=== PATIENT | male | born 1940 | race American Indian/Alaskan Native ===

== ENCOUNTER 2019-07-25 08:51 | Day surgery (SDC) | payer MEDICARE ==
[2019-07-25] MEDS ORDERED: SODIUM CHLORIDE 0.9% 1000 ML 1,000 ML IV SCH (09:00)
--- NOTE | 2019-07-25 10:11 | Anesthesia Consultation ---
Anesthesia Consult and Med Hx Date of service: 07/25/19 - Airway Anesthetic Teeth Evaluation: Poor ROM Head & Neck: Adequate Mental/Hyoid Distance: Adequate Mallampati Class: Class II Intubation Access Assessment: Probably Good - Pulmonary Exam CTA: Yes - Pre-Operative Health Status ASA Pre-Surgery Classification: ASA3 Proposed Anesthetic Plan: MAC - Pulmonary Hx Sleep Apnea: Yes (Does not use his CPAP machine) - Cardiovascular System Hx Hypertension: Yes Hx Coronary Artery Disease: Yes (EF 42%) Hx Cardia Arrhythmia: Yes (His of Afibb, Aflutter) Hx Heart Murmur: Yes - Gastrointestinal Hx Ulcer: Yes (STOMACH/INTESTINAL ULCERS) - Hematic Hx Anemia: Yes - Other Systems Hx Cancer: Yes (Prostate CA)
--- NOTE | 2019-07-25 10:12 | Anesthesia Day of Surgery ---
Anesthesia Day of Surgery - Day of Surgery Patient Examined: Yes Patient H&P Reviewed: Yes Patient is NPO: Yes Beta Blockers: Yes Cardiac Clearance: Yes
[2019-07-25] MEDS ORDERED: PROPOFOL 200 MG/20 ML VIAL IV ONE (10:14)
--- NOTE | 2019-07-25 10:47 | Short Stay Summary ---
Short Stay Documentation Date of service: 07/25/19 - History H&P: obtained from office - Allergies and Medications Current Medications: Allergies Penicillins Allergy (Verified 07/25/19 08:31) Shortness of Breath Home Medications Medication Instructions Recorded Confirmed Last Taken Type Bicalutamide 50 mg PO DAILY 07/25/19 07/25/19 Unknown History Celecoxib 200 mg PO PRN PRN 07/25/19 07/25/19 Unknown History Ferrous Sulfate 325 mg PO BID 07/25/19 07/25/19 Unknown History Furosemide 40 mg PO DAILY 07/25/19 07/25/19 07/24/19 History Ibuprofen 800 mg PO DAILY 07/25/19 07/25/19 Unknown History Lisinopril 5 mg PO DAILY 07/25/19 07/25/19 07/21/19 History Metoprolol 25 mg PO DAILY 07/25/19 07/25/19 07/21/19 History Multiple Vitamins 1 tab PO DAILY 07/25/19 07/25/19 07/21/19 History Potassium Chloride 10 meq PO DAILY 07/25/19 07/25/19 Unknown History Warfarin 7.5 mg PO DAILY 07/25/19 07/25/19 07/21/19 History Active Medications Sodium Chloride (Nacl 0.9% 1000 Ml) 1,000 mls @ 50 mls/hr IV DIRECT JESSICA Last Admin: 07/25/19 09:59 Dose: 50 mls/hr Documented by: - Brief post op/procedure progress note Date of procedure: 07/25/19 Procedure: see dictation Estimated blood loss: none Pathology: list (1. Random right colon biopsies for microscopic colitis 2. ascending colon polyp 3. sigmoid colon polyp) Specimen disposition: to lab Condition: stable - Disposition Condition at discharge: Good Disposition: DC-01 TO HOME OR SELFCARE - Discharge Diagnoses (1) Diarrhea Status: Acute Short Stay Discharge Plan Activity: other (no driving for 24 hours) Weight Bearing Status: Full Weight Bearing Diet: regular Follow up with: PRIMARY CARE, [Primary Care Provider] - 7 Days
--- NOTE | 2019-07-25 10:51 | Operative Report ---
Operative Report Operative Report: Date of procedure: 07/25/2019 Preprocedure diagnosis: Unexplained diarrhea. Change in bowel habits. Post procedure diagnosis: Normal-appearing terminal ileum. The 7 millimeter pedunculated, inflamed appearing descending colon polyp. 6 mm sessile sigmoid polyp. Procedure: Colonoscopy to the cecum and terminal ileum with random biopsies of the right colon and snare polypectomy with cautery 2. Endoscopist: Dr. Vargas Anesthesia: Monitored anesthesia care per anesthesia department Estimated blood loss: 0 Medications: Monitored anesthesia care. See separate report by anesthesia for details. After careful discussion of the nature and purpose of the procedure as well as details of the technique risks benefits and alternatives the patient gave consent. Please see recent history and physical from the office. The patient was placed in the left lateral decubitus position and medicated per anesthesia. A rectal exam was performed sphincter tone was normal there were no masses palpable. The Klyppern 570 scope was passed transanally and advanced under continuous direct vision without difficulty to the cecum. The colon was well prepared. The cecum was normal. The ileocecal valve appeared normal. The valve was traversed with the scope in the distal 5 cm of terminal ileum appeared normal. The ascending colon revealed a 7 mm inflamed-appearing pedunculated polyp. The polyp was removed with snare electrocautery and retrieved by suction. There was the ascending colon was normal and on forward and retroflexed views. The transverse colon and descending colon were normal. Random biopsies of the right colon were taken to exclude microscopic colitis. Mucosa appeared normal throughout. There was a 6 mm sessile polyp in the sigmoid colon which was removed with snare electrocautery and retrieved by suction. The rectum was normal on forward and retroflexed views. The procedure was well-tolerated overall and the patient was observed in recovery. Conclusions: Normal-appearing terminal ileum. 7 mm ascending colon polyp with an inflamed appearance. 6 mm sessile sigmoid colon polyp. The mucosa throughout the colon, random right colon biopsies taken for microscopic colitis. Plan: Await pathology. The patient call the office in 1 week to discuss the findings and further management. Repeat colonoscopy in 5 years in light of polyps. Signed electronically: Pete Vargas M.D.
[2019-07-25 11:31] VITALS: BP 151/72
--- NOTE | 2019-07-25 15:51 | Post Anesthesia Evaluation ---
- Post Anesthesia Evaluation Patient Participated: Yes Airway Patent: Yes Stable Respiratory Function: Yes Nausea/Vomiting: No Temp > 96.8F: Yes Pain Manageable: Yes Adequeate Hydration: Yes Anesthesia Complications: No Block Receding Appropriately: Not Applicable Patient on Ventilator: No
== END 2019-07-25 08:52 | disposition home or self-care (01) ==
LOC: GIO 08:51
PROVIDERS: ATTEND Internal Medicine Gastroenterology
DX: D12.5 Benign neoplasm of sigmoid colon (principal); R19.4 Change in bowel habit; R19.7 Diarrhea, unspecified; H40.9 Unspecified glaucoma; I11.0 Hypertensive heart disease with heart failure; I50.9 Heart failure, unspecified; G47.30 Sleep apnea, unspecified; M19.90 Unspecified osteoarthritis, unspecified site; I25.10 Atherosclerotic heart disease of native coronary artery without angina pectoris; Z96.649 Presence of unspecified artificial hip joint; Z85.46 Personal history of malignant neoplasm of prostate; Z88.0 Allergy status to penicillin; Z79.01 Long term (current) use of anticoagulants; Z79.899 Other long term (current) drug therapy; Z98.49 Cataract extraction status, unspecified eye; Z98.890 Other specified postprocedural states
CPT/HCPCS: 45380; 45385; 88305; J2704; J7030